=== PATIENT | female | born 1990 | race Asian ===

== ENCOUNTER 2019-03-24 19:37 | Inpatient (IN) ==
[2019-03-24] MEDS ORDERED: OXYTOCIN 30 UNITS/500 ML BAG IV PRN (20:53)
--- NOTE | 2019-03-24 21:00 | History & Physical Report ---
Date of Service March 24, 2019 Assessment & Plan (1) Term : 29yo at 38.3 weeks GA. Labor 1. Fetus: Cat1 2. Labor: Progressing. Will augment PRN 3. GBS- 4. Vitals: wnl (2) Normal labor: History of Present Illness Primary Care Provider: NO PCP 29yo at 38.3 weeks GA. Presents in labor. complicated by late CHRISTEN. Denies LOF, VB. Good FM Allergies Allergy/AdvReac Type Severity Reaction Status Date / Time No Known Allergies Allergy Unverified 03/24/19 19:51 Home Medications Home Medications Medication Instructions Recorded Confirmed Type vit-iron fum-folic ac 1 tab PO DAILY 03/24/19 03/24/19 History [ Vitamin] Patient History Social History Preferred Language: [facility] Communication Ability: Impaired Front End Web Developer Required: Yes Beliefs That Will Affect Care: None marital status: Single Current Living Situation: Other Current Living Situation Comment: pt lives with friend and friend's ; FOB is not involved Other Information That Helps Us Care for You: Yes (plan is for pt to return to [facility] with family 1-2 months after deliver) Feels Safe at Home: Yes Safety Concerns: Feels Safe At This Time Smoking Status: Never smoker Second Hand Exposure: No Hx Alcohol Use: No Hx Substance Use: No Physical Exam Genitourinary: OB Exam Abdomen: + vertex Manual OB Exam: + cervical dilati on 5 cm, + cervical effacement 80% and + station -2 OB Exam Monitor Tracing: + external FHT monitor used, + external uterine monitor used and + category I Results & Data Vital Signs (Past 12 Hours) Vital Signs Temp Pulse Resp BP 03/24/19 19:53 36.8 C 83 18 125/72 03/24/19 19:50 83 125/72
[2019-03-24] MEDS: LACTATED RINGER'S 1,000 ML IV PRN ×2 (21:12→22:12)
[2019-03-24 21:18] LABS: Hematocrit (blood only) 31.7 % (37-47); Hemoglobin 10.9 g/dL (12.0-16.0); Mean Corpuscular Volume 90.6 fL (80-100); Mean Platelet Volume 11.5 fL (7.4-10.4); Platelet Count 160 K/uL (130-400); RDW Coefficient of Variation 14.2 % (11.5-14.5); RDW Standard Deviation 46.9 fL (36.4-46.3); White Blood Count 8.46 K/uL (4.8-10.8)
[2019-03-24] MEDS ORDERED: ePHEDrine sulfate 50 MG/ML AMP ONE (21:54)
[2019-03-24] MEDS ORDERED: BUPIVACAINE 0.25% 30 ML VIAL ONE (21:54)
[2019-03-24] MEDS ORDERED: fentaNYL citrate 100 MCG/2 ML VIAL ONE (21:54)
[2019-03-24] MEDS ORDERED: fentaNYL 2MCG/ML ROPIV 1.25MG/ML 100 ML BAG EPI ONE (21:55)
[2019-03-24 22:12] LABS: Mean Corpuscular Hgb Conc 34.4 g/dL (32-36)
--- NOTE | 2019-03-24 22:25 | Anesthesiology Consultation ---
Date of Service March 24, 2019 Assessment & Plan Chart Review Chart Review: Acceptable Risk for Labor Epidural Consults Requested none History Height/Weight Height: 5 ft 10.08 in Weight: 79.2 kg Allergies Allergy/AdvReac Type Severity Reaction Status Date / Time No Known Allergies Allergy Unverified 03/24/19 19:51 Medications Home Medications Medication Instructions Recorded Confirmed Last Taken vit-iron fum-folic ac 1 tab PO DAILY 03/24/19 03/24/19 03/24/19 08:00 [ Vitamin] Active Medications Generic Name Dose Route Start Last Admin Trade Name Freq PRN Reason Stop Dose Admin Lactated Ringer's 1,000 mls @ 125 mls/hr 03/24/19 20:53 03/24/19 21:12 Lr IV 03/26/19 20:52 999 mls/hr .Q8H PRN Administration L&D Protocol Protocol Social History Smoking Status: Never smoker Hx Alcohol Use: No Hx Substance Use: No substance use type: does not use Physical Exam Vital Signs Last Vital Signs Temp 36.8 C 03/24/19 19:53 Pulse 86 03/24/19 22:23 Resp 18 03/24/19 19:53 BP 121/71 03/24/19 22:23 Pulse Ox 98 03/24/19 22:22
--- NOTE | 2019-03-24 23:32 | Obstetrical Progress Note ---
Date of Service March 24, 2019 Assessment & Plan (1) Term : 29yo at 38.3 weeks GA. Labor 1. Fetus: Cat1 2. Labor: Progressing. AROM clear. Will augment PRN 3. GBS- 4. Vitals: wnl (2) Normal labor: Subjective Doing well Physical Exam Genitourinary: OB Exam Abdomen: + vertex Manual OB Exam: + cervical dilation 6 cm, + cervical effacement 90%, + station 0 and + amniotic fluid clear OB Exam Monitor Tracing: + external FHT monitor used, + external uterine monitor used and + category I Results & Data Vital Signs (Past 12 Hours) Vital Signs Temp Pulse Resp BP Pulse Ox 03/24/19 23:27 77 99 03/24/19 23:26 78 145/72 H 03/24/19 23:22 80 99 03/24/19 23:20 76 126/80 03/24/19 23:17 77 99 03/24/19 23:16 75 129/79 03/24/19 23:12 77 99 03/24/19 23:10 73 121/78 03/24/19 23:07 81 98 03/24/19 23:05 75 120/75 03/24/19 23:02 74 128/83 99 03/24/19 23:00 20 03/24/19 22:57 78 99 03/24/19 22:55 75 145/65 H 03/24/19 22:52 77 99 03/24/19 22:50 76 143/65 H 03/24/19 22:47 81 99 03/24/19 22:46 83 145/64 H 03/24/19 22:45 18 03/24/19 22:42 91 H 99 03/24/19 22:37 71 99 03/24/19 22:35 76 119/68 03/24/19 22:32 86 99 03/24/19 22:30 86 18 125/70 03/24/19 22:27 83 99 03/24/19 22:25 81 128/72 03/24/19 22:23 86 121/71 03/24/19 22:22 88 98 03/24/19 22:21 84 122/69 03/24/19 22:19 79 127/70 03/24/19 22:17 81 99 03/24/19 22:16 88 139/91 03/24/19 22:12 74 100 03/24/19 22:07 80 100 03/24/19 22:05 79 134/87 03/24/19 22:02 79 100 03/24/19 19:53 36.8 C 83 18 125/72 03/24/19 19:50 36.8 C 83 18 125/72
[2019-03-25] MEDS ORDERED: OXYTOCIN 30 UNITS/500 ML BAG IV PRN ×2 (05:07→08:24)
[2019-03-25] MEDS ORDERED: fentaNYL 2MCG/ML ROPIV 1.25MG/ML 100 ML BAG EPI ONE (05:12)
[2019-03-25] MEDS: LACTATED RINGER'S 1,000 ML IV PRN (05:54)
[2019-03-25] MEDS ORDERED: ACETAMINOPHEN 325 MG TAB PO PRN (08:24)
[2019-03-25] MEDS ORDERED: DIPHTHERIA/TETANUS/PERTUSSIS 0.5 ML SYR/VIAL IM ONE (08:24)
[2019-03-25] MEDS ORDERED: HYDROCORTISONE ACETATE 25 MG SUPP PR PRN (08:24)
[2019-03-25] MEDS ORDERED: SUPERCREAM 0.870% 15 GM JAR EXT PRN (08:24)
[2019-03-25] MEDS ORDERED: BENZOCAINE 20% AER SPR 82.5 GM CAN EXT PRN (08:24)
--- NOTE | 2019-03-25 10:54 | Anesthesia Procedure Note ---
Date of Service March 25, 2019 Anesthesia Post Epidural Note Vital Signs Vital Signs: Temp Pulse Resp BP Pulse Ox 03/25/19 10:43 81 115/59 L 03/25/19 10:35 18 03/25/19 10:28 92 H 129/59 L 03/25/19 10:13 85 123/63 03/25/19 09:58 86 122/60 03/25/19 09:43 18 03/25/19 09:28 84 120/67 03/25/19 09:13 78 18 132/71 03/25/19 08:58 79 18 120/68 03/25/19 08:43 80 20 139/80 03/25/19 08:28 86 20 134/88 03/25/19 08:13 89 20 167/65 H 03/25/19 07:58 93 H 144/74 H 03/25/19 07:57 91 H 98 03/25/19 07:52 118 H 97 03/25/19 07:51 108 H 92 03/25/19 07:47 99 H 97 03/25/19 07:44 93 H 147/72 H 03/25/19 07:43 91 H 83 L 03/25/19 07:42 89 97 03/25/19 07:37 92 H 94 03/25/19 07:36 84 94 03/25/19 07:32 94 H 98 03/25/19 07:30 86 126/59 L 03/25/19 07:28 81 91 03/25/19 07:27 93 H 97 03/25/19 07:22 95 H 98 03/25/19 07:19 96 H 93 03/25/19 07:17 107 H 93 03/25/19 07:15 37.2 C 03/25/19 07:14 98 H 141/63 H 03/25/19 07:13 100 H 83 L 03/25/19 07:12 100 H 97 03/25/19 07:07 109 H 98 03/25/19 07:02 94 H 98 03/25/19 07:00 22 03/25/19 06:58 88 137/84 03/25/19 06:57 113 H 96 03/25/19 06:52 124 H 97 03/25/19 06:47 108 H 98 03/25/19 06:45 20 03/25/19 06:44 97 H 137/71 03/25/19 06:42 110 H 95 03/25/19 06:41 37.4 C 107 H 93 03/25/19 06:37 103 H 98 03/25/19 06:32 106 H 99 03/25/19 06:30 20 03/25/19 06:28 101 H 126/74 03/25/19 06:27 110 H 98 03/25/19 06:22 110 H 98 03/25/19 06:17 145 H 98 03/25/19 06:13 111 H 104/57 L 03/25/19 06:12 110 H 98 03/25/19 06:07 90 99 03/25/19 06:02 89 97 03/25/19 06:00 18 03/25/19 05:58 86 122/68 03/25/19 05:57 88 98 03/25/19 05:52 83 97 03/25/19 05:47 84 98 03/25/19 05:43 81 122/64 03/25/19 05:42 84 97 03/25/19 05:37 85 97 03/25/19 05:32 82 97 03/25/19 05:30 16 03/25/19 05:28 90 113/59 L 03/25/19 05:27 92 H 95 03/25/19 05:22 83 97 03/25/19 05:17 81 97 03/25/19 05:13 83 110/63 03/25/19 05:12 84 97 03/25/19 05:07 80 97 03/25/19 05:02 82 97 03/25/19 05:00 16 03/25/19 04:58 82 113/61 03/25/19 04:57 83 97 03/25/19 04:52 93 H 97 03/25/19 04:47 81 97 03/25/19 04:44 88 118/60 03/25/19 04:42 85 97 03/25/19 04:37 88 97 03/25/19 04:32 88 97 03/25/19 04:30 37.4 C 16 03/25/19 04:28 76 101/55 L 03/25/19 04:27 77 95 03/25/19 04:22 85 95 03/25/19 04:17 87 96 06/01/19 04:13 83 103/57 L 06/01/19 04:12 86 96 03/25/19 04:07 91 H 97 03/25/19 04:02 91 H 97 03/25/19 04:00 16 03/25/19 03:58 86 112/59 L 91 03/25/19 03:57 87 96 03/25/19 03:52 90 96 03/25/19 03:47 88 96 03/25/19 03:43 86 112/61 03/25/19 03:42 84 96 03/25/19 03:40 91 H 94 03/25/19 03:37 86 95 03/25/19 03:35 86 93 03/25/19 03:32 85 96 03/25/19 03:30 20 03/25/19 03:29 88 130/64 03/25/19 03:28 87 93 03/25/19 03:27 81 99 03/25/19 03:22 86 96 03/25/19 03:20 89 93 03/25/19 03:17 88 94 03/25/19 03:15 18 03/25/19 03:13 89 136/80 03/25/19 03:12 86 97 03/25/19 03:07 89 97 03/25/19 03:05 96 H 87 L 03/25/19 03:02 90 99 03/25/19 03:00 82 20 151/92 H 03/25/19 02:57 77 98 03/25/19 02:52 85 98 03/25/19 02:47 85 98 03/25/19 02:43 94 H 125/72 03/25/19 02:42 91 H 98 03/25/19 02:37 85 98 03/25/19 02:32 85 98 03/25/19 02:30 18 03/25/19 02:28 85 122/78 03/25/19 02:27 89 98 03/25/19 02:24 37.0 C 03/25/19 02:22 82 98 03/25/19 02:17 83 97 03/25/19 02:14 75 124/78 03/25/19 02:12 86 98 03/25/19 02:07 80 98 03/25/19 02:02 76 98 03/25/19 02:00 20 03/25/19 01:58 74 137/84 03/25/19 01:57 78 98 03/25/19 01:52 85 98 03/25/19 01:47 81 99 03/25/19 01:44 79 142/98 H 03/25/19 01:42 78 98 03/25/19 01:37 81 98 03/25/19 01:32 79 99 03/25/19 01:30 20 03/25/19 01:28 79 136/80 03/25/19 01:27 77 98 03/25/19 01:22 77 98 03/25/19 01:17 75 98 03/25/19 01:13 72 133/71 03/25/19 01:12 70 98 03/25/19 01:07 72 99 03/25/19 01:02 72 98 03/25/19 01:00 20 03/25/19 00:58 70 134/83 03/25/19 00:57 77 99 03/25/19 00:52 75 98 03/25/19 00:47 71 98 03/25/19 00:43 67 132/92 03/25/19 00:42 69 98 03/25/19 00:37 72 98 03/25/19 00:32 73 97 03/25/19 00:30 18 03/25/19 00:28 74 125/70 03/25/19 00:27 72 98 03/25/19 00:22 74 98 03/25/19 00:17 78 98 03/25/19 00:15 36.8 C 18 03/25/19 00:14 69 127/69 03/25/19 00:12 75 99 03/25/19 00:07 72 98 03/25/19 00:02 76 98 03/25/19 00:00 18 03/24/19 23:58 75 119/72 03/24/19 23:57 76 98 03/24/19 23:52 74 99 03/24/19 23:47 79 98 03/24/19 23:44 73 124/71 03/24/19 23:42 75 98 03/24/19 23:37 78 98 03/24/19 23:32 77 98 03/24/19 23:30 18 03/24/19 23:27 77 99 03/24/19 23:26 78 145/72 H 03/24/19 23:22 80 99 03/24/19 23:20 76 126/80 03/24/19 23:17 77 99 03/24/19 23:16 75 129/79 03/24/19 23:15 20 03/24/19 23:12 77 99 03/24/19 23:10 73 121/78 03/24/19 23:07 81 98 03/24/19 23:05 75 120/75 03/24/19 23:02 74 128/83 99 03/24/19 23:00 20 03/24/19 22:57 78 99 03/24/19 22:55 75 145/65 H 03/24/19 22:52 77 99 03/24/19 22:50 76 143/65 H 03/24/19 22:47 81 99 03/24/19 22:46 83 145/64 H 03/24/19 22:45 18 03/24/19 22:42 91 H 99 03/24/19 22:37 71 99 03/24/19 22:35 76 119/68 03/24/19 22:32 86 99 03/24/19 22:30 86 18 125/70 03/24/19 22:27 83 99 03/24/19 22:25 81 128/72 03/24/19 22:23 86 121/71 03/24/19 22:22 88 98 03/24/19 22:21 84 122/69 03/24/19 22:19 79 127/70 03/24/19 22:17 81 99 03/24/19 22:16 88 139/91 03/24/19 22:12 74 100 03/24/19 22:07 80 100 03/24/19 22:05 79 134/87 03/24/19 22:02 79 100 03/24/19 19:53 36.8 C 83 18 125/72 03/24/19 19:50 36.8 C 83 18 125/72 Pain Intensity Abdomen: Pain Intensity: 4 Notes Mental Status: alert / awake / arousable Patient Amnestic to Procedure: No Nausea / Vomiting: adequately controlled Pain: adequately controlled Airway Patency, RR, SpO2: stable & adequate BP & HR: stable & adequate Hydration State: stable & adequate Anesthetic Complications: no major complications apparent Epidural: Removed without complications and With tip intact Notes: Doing well. VSS. Denies having any HOLDEN, paresthesia. Epidural site looks clean and dry without signs of erythema or edema
[2019-03-25] MEDS: IBUPROFEN 600 MG TAB PO PRN ×2 (11:13→19:51)
[2019-03-25] MEDS: DOCUSATE SODIUM 100 MG CAP PO SCH ×2 (11:14→20:16)
[2019-03-25] MEDS: PRENATAL VITAMIN 1 TAB PO SCH (11:43)
[2019-03-26] MEDS: IBUPROFEN 600 MG TAB PO PRN ×2 (05:01→15:49)
[2019-03-26 06:44] LABS: Hematocrit (blood only) 29.6 % (37-47); Mean Corpuscular Hgb Conc 33.8 g/dL (32-36); Mean Corpuscular Volume 92.2 fL (80-100); Mean Platelet Volume 11.7 fL (7.4-10.4); Platelet Count 167 K/uL (130-400); RDW Coefficient of Variation 14.6 % (11.5-14.5); Red Blood Count 3.21 M/uL (4.2-5.4); White Blood Count 15.56 K/uL (4.8-10.8)
--- NOTE | 2019-03-26 07:21 | Obstetrical Progress Note ---
Date of Service March 26, 2019 Assessment & Plan (1) Term : Recovering normally s/p vaginal delivery. Present on Admission?: Yes Subjective Ambulation: ambulating normally Voiding: no voiding problems Passing Gas:: Yes Diet Tolerance:: regular diet Lochia:: Small Current Pain Level(1-10): 0 Respiratory: no cough and no dyspnea Cardiovascular: no chest pain Breast: no problem reported Gastrointestinal: no nausea and no vomiting Genitourinary (male): no difficulty urinating Lochia decreasing Psychiatric: no depression Physical Exam Vital Signs (Past 24 Hours) Last Vital Signs Temp 36.7 C 03/26/19 04:55 Pulse 78 03/26/19 04:55 Resp 16 03/26/19 04:55 BP 99/63 L 03/26/19 04:55 Pulse Ox 98 03/26/19 04:55 Constitutional WD/WN, vitals as above no acute distress Respiratory normal respiratory effort and able to speak in complete sentences; no respiratory distress and does not use accessory muscles Cardiovascular Rate/Rhythm: regular rate and regular rhythm Extremities: no calf tenderness Negative Belkis's Gastrointestinal (Abdomen) Post-gravid, fundus firm at umbilicus Psychiatric Affect: euthymic affect Genitourinary Speculum/Bimanual Exam: uterus nontender Results & Data Laboratory Results Laboratory Results - last 24 hr 03/26/19 06:08 WBC 15.56 H RBC 3.21 L Hgb 10.0 L Hct 29.6 L MCV 92.2 MCH 31.2 MCHC 33.8 RDW Std Deviation 50.0 H RDW Coeff of Elvin 14.6 H Plt Count 167 MPV 11.7 H
[2019-03-26] MEDS: PRENATAL VITAMIN 1 TAB PO SCH (09:27)
[2019-03-26] MEDS: DOCUSATE SODIUM 100 MG CAP PO SCH ×2 (09:27→20:35)
[2019-03-26] MEDS ORDERED: BISACODYL 5 MG TABEC PO SCH (20:00)
--- NOTE | 2019-03-27 06:29 | Obstetrical Progress Note ---
Date of Service <Ike Melton MD - Last Filed: 03/27/19 06:37> March 27, 2019 Assessment & Plan <Ike Melton MD - Last Filed: 03/27/19 06:37> (1) Vaginal delivery: Isac is a 29yo G1PO who presented at 38+4 now s/p - GBS negative, O+ - Feels well today. Eating well, voiding well, ambulating well. - with bottle feeding supplement, doing well - Pain well controlled with ibuprofen 600mg Q4H PRN. - Routine care - After discharge will have [address] Francis. Subjective <Ike Melton MD - Last Filed: 03/27/19 06:37> Ambulation: ambulating normally Voiding: no voiding problems Passing Gas:: Yes Diet Tolerance:: regular diet Lochia:: Small Feeding Type:: breast feeding (with bottle supplement) Current Pain Level(1-10): 0 Review of Systems Denies fever, chills, sweats Denies shortness of breath, difficulty breathing, chest pain, palpitations, chest pressure. Denies breast pain. Denies dysuria. Denies headache. Physical Exam <Ike Melton MD - Last Filed: 03/27/19 06:37> Vital Signs (Past 24 Hours) Last Vital Signs Temp 37.1 C 03/26/19 23:30 Pulse 80 03/26/19 23:30 Resp 18 03/26/19 23:30 BP 113/17 L 03/26/19 23:30 Pulse Ox 97 03/26/19 20:30 General: Alert, oriented. No acute distress. Cardiac: Regular rate and rhythm, no murmurs/rubs/gallops. Respiratory: Clear to auscultation anterior and posteriorly, no wheezes/rales/rhonchi. No increased work of breathing. Symmetrical chest rise. No respiratory distress. Abdomen: Soft, nontender, nondistended. Bowel sounds present. Uterus: Uterine fundus firm, palpable 2cm below umbilicus. Lower Extremities: No lower extremity edema or swelling. No deep calf pain. Belkis's negative bilaterally. <Skye Dewey MD - Last Filed: 03/27/19 06:57> Co-Signing Physician Notes I have reviewed the resident's note and examined the patient myself, and agree with the note above. Resident Activity Tracking <Ike Melton MD - Last Filed: 03/27/19 06:37> Resident Involvement: Resident Care Provided Care Provided: Adult [facility]
[2019-03-27] MEDS: DOCUSATE SODIUM 100 MG CAP PO SCH (08:10)
[2019-03-27] MEDS: PRENATAL VITAMIN 1 TAB PO SCH (08:10)
[2019-03-27] MEDS: IBUPROFEN 600 MG TAB PO PRN ×2 (08:12→14:53)
[2019-03-27] MEDS ORDERED: BISACODYL 10 MG SUPP PR PRN (09:00)
--- NOTE | 2019-03-27 10:49 | Delivery Summary ---
DATE OF OPERATION: 03/25/2019 PROCEDURE: Normal spontaneous vaginal delivery with second-degree laceration repair. SURGEON: Dick Francis MD PREOPERATIVE DIAGNOSES: 1. Single intrauterine at term. 2. Spontaneous labor. 3. Late transfer of care. POSTOPERATIVE DIAGNOSES: 1. Single intrauterine at term. 2. Spontaneous labor. 3. Late transfer of care. 4. Delivered. ESTIMATED BLOOD LOSS: 300 mL DRAINS: None. FLUIDS: Continuous lactated ringer. URINE OUTPUT: Not measured. COMPLICATIONS: None. FINDINGS: Viable with weight pending, Apgars of 8 and 9 at 1 and 5 minutes respectively. INDICATIONS: The patient is a 29-year-old G1, P0, admitted for active labor. The patient progressed in labor without augmentation and progressed to complete-complete +2, at which time she felt the urge to push. The patient received an epidural for anesthesia and did undergo artificial rupture of membranes for clear fluid. DESCRIPTION OF PROCEDURE: The patient progressed to 10 cm dilated, 100% effaced, +2 station, pushed over intact perineum with epidural anesthesia and delivered a viable infant with weight and Apgars as noted above. Head of delivered in PEBBLES position, restituted to right transverse. Nuchal cord x2 was noted, which was easily reduced. The body and shoulders quickly followed. was noted to be vigorous upon delivery. A 1-minute delayed cord clamping was initiated, after which the cord was double clamped and cut. The remained on the maternal abdomen. Cord blood was then obtained. Attention was then turned to delivery of the placenta, which was delivered intact with 3-vessel cord with gentle cord traction. On inspection of vagina, perineum and cervix, there was noted to be second-degree perineal laceration, which was repaired with a normal crown stitch. Needle, sponge, and instrument counts were correct at the completion of the case. Both mother and were stable in the immediate post-delivery. I attest to the content of the Intraoperative Record and any orders documented therein. Any exception s are noted below.
== END 2019-03-27 18:55 | disposition home or self-care (01) | DRG 807 ==
LOC: 4S1 19:37 → OPB 19:37 → 4S1 20:53 → 4S2 03-25 12:15